=== PATIENT | female | born 1940 | race Caucasian/White ===

== ENCOUNTER 2016-10-06 12:03 | Emergency (ER) | payer MEDICARE ==
--- NOTE | 2016-10-06 13:40 | ED Physician Chart ---
Chief Complaint/HPI - Patient Information Date Seen:: 10/06/16 Time Seen:: 13:20 Chief Complaint:: bleeding right small finger History of Present Illness:: The patient was working in her backyard yesterday at about 1430 and stuck herself with a gregorio thorn on her right small finger; the puncture wound of the palmar PIP joint bled profusely afterwards. Bleeding subsided but recurred again this morning. The 2 puncture wounds on the palmar distal segment of the right small finger did not bleed. Patient is on a baby aspirin daily. She is not on Coumadin or any other blood thinner. Allergies:: Allergies Allergy/AdvReac Type Severity Reaction Status Date / Time No Known Allergies Allergy Verified 10/06/16 12:44 Vitals:: Vital Signs - 8 hr 10/06/16 12:45 Temp 98.2 F HR 89 RR 16 BP 175/97 O2 Sat % 98 Historian:: Patient Review:: Nurse's Note Reviewed Review of Systems - Review of Systems General/Constitutional: No fever, No chills Skin: Skin lesions Head: No headache Eyes: No loss of vision ENT: No earache Neck: No neck pain Cardio Vascular: No chest pain Pulmonary: No SOB GI: No nausea, No vomiting G/U: No dysuria Musculoskeletal: No bone or joint pain Endocrine: No polyuria Psychiatric: No prior psych history, No anxiety Hematopoietic: No bruising Allergic/Immuno: No urticaria Neurological: No syncope, No focal symptoms Past Medical History - Past Medical History Past Medical History: No significant medical hx Family History: Heart disease, Diabetes Melitus Social History: Non Smoker, No Alcohol Surgical History: other (back surgery ) Psychiatricy History: None Medication: Reviewed Family Medical History - Family Member Mother Living Status: Other Medical History: heart disease Physical Exam - Physical Examination General/Constitutional: Well-developed, well-nourished, Alert Head: Atraumatic Eyes: Lids, conjuctiva normal Other Skin comments:: Right small finger; there is about a 2 mm puncture wound of the palmar PIP joint ; there are 2 about 1 mm puncture wounds of the palmar distal segment there is no active bleeding; neurovascular status is intact ENMT: External ears, nose nl Neck: No nuchal rigidity Respiratory: Nl effort/Exclusion, Clear to Auscultation Cardio Vascular: RRR, No murmur, gallop, rubs, NL S1 S2 GI: No tenderness/rebounding/guarding, No organomegaly : No CVA tenderness Extremities: Normal digits & nails Neuro/Psych: Alert/oriented Misc: Normal back Assessment - Assessment General Assessment: 1/4 inch steristrips applied circumferentially to puncture wound PIP joint right small finger. 2 inch uli then applied. ED Septic Shock - . Is Septic Shock (SBP<90, OR Lactate>4 mmol\L) present?: No - <6hrs of presentation: Vital Signs: Vital Signs - 8 hr 10/06/16 12:45 Temp 98.2 F HR 89 RR 16 BP 175/97 O2 Sat % 98 Reassessment (Disposition) - Reassessment Reassessment Condition:: Unchanged - Diagnosis Diagnosis:: puncture wounds right small finger - Aftercare/Follow up Instructions Aftercare/Follow-Up Instructions:: Refer to Discharge Instructions - Patient Disposition Discharge/Transfer:: Home Admitted to:: Med/Surg Condition at Disposition:: Stable, Unchanged
== END 2016-10-06 14:00 | disposition home or self-care (01) ==
LOC: ER 12:03
DX: S61.236A Puncture wound without foreign body of right little finger without damage to nail, initial encounter (principal); X58.XXXA Exposure to other specified factors, initial encounter; Y93.89 Activity, other specified; Y92.89 Other specified places as the place of occurrence of the external cause; Y99.8 Other external cause status
CPT/HCPCS: Z7502